=== PATIENT | female | born 2000 | race Caucasian/White ===

== ENCOUNTER → 2018-08-25 13:17 | Outpatient (CLI) | payer SELFPAY ==
[2018-08-25 14:36] LABS: APPEARANCE CLEAR (CLEAR); BACTERIA FEW /hpf (NONE SEEN); BILIRUBIN NEGATIVE (NEGATIVE); COLOR YELLOW (YELLOW); EPITHELIAL CELLS 0-5 /hpf (0-5); GLUCOSE 100 mg/dL (NEGATIVE); KETONE SMALL mg/dL (NEGATIVE); NITRITE NEGATIVE (NEGATIVE); PROTEIN 1+ mg/dL (NEGATIVE); RED CELLS - URINE 0-5 /hpf (0-5); SPECIFIC GRAVITY 1.015 (1.005-1.020); UROBILINOGEN NORMAL (NORMAL); WHITE CELLS - URINE 0-5 /hpf (0-5)
== END | disposition home or self-care (01) ==
LOC: D.LDO 13:17
PROVIDERS: Obstetrics & Gynecology
DX: O26.893 Other specified pregnancy related conditions, third trimester (principal); Z3A.32 32 weeks gestation of pregnancy

== ENCOUNTER 2018-08-30 14:04 | Outpatient (CLI) | payer SELFPAY ==
[2018-08-30 16:26] LABS: APPEARANCE CLEAR (CLEAR); BILIRUBIN NEGATIVE (NEGATIVE); COLOR YELLOW (YELLOW); GLUCOSE 100 mg/dL (NEGATIVE); KETONE NEGATIVE (NEGATIVE); NITRITE NEGATIVE (NEGATIVE); PROTEIN NEGATIVE (NEGATIVE); UROBILINOGEN NORMAL (NORMAL)
[2018-08-30 16:27] LABS: EPITHELIAL CELLS 0-5 /hpf (0-5); RED CELLS - URINE 0-5 /hpf (0-5); WHITE CELLS - URINE 0-5 /hpf (0-5)
[2018-08-30 16:58] LABS: BASOPHILS 0.1 % (0-2); EOSINOPHILS 0.2 % (0-7); HEMATOCRIT 32.1 % (36.0-48.0); HEMOGLOBIN 11.4 g/dL (12-16); IMMATURE GRANULOCYTES 0.6 % (0-5); LYMPHOCYTES 8.7 % (15-50); MCH 30.8 pg (26.0-34.0); MCHC 35.5 g/dL (31.0-37.0); MCV 86.8 fL (80.0-100.0); MEAN PLATELET VOLUME 10.6 fL (7.4-10.4); MONOCYTES 8.2 % (2-11); NEUTROPHILS 82.2 % (40-80); PLATELET COUNT 150 10x3/uL (130-400); RDW 13.4 % (11.5-14.5); WBC 16.4 10x3/uL (4.8-10.8)
[2018-08-30] MEDS ORDERED: PRENAVITE1 TAB PO (19:35)
[2018-08-30] MEDS ORDERED: ACETAMINOPHEN500 M1 PO (19:35)
[2018-08-31 06:15] LABS: BASOPHILS 0.1 % (0-2); EOSINOPHILS 0.3 % (0-7); HEMATOCRIT 33.2 % (36.0-48.0); HEMOGLOBIN 11.7 g/dL (12-16); IMMATURE GRANULOCYTES 0.8 % (0-5); MCHC 35.2 g/dL (31.0-37.0); MCV 87.8 fL (80.0-100.0); MEAN PLATELET VOLUME 10.9 fL (7.4-10.4); MONOCYTES 7.6 % (2-11); NEUTROPHILS 80.2 % (40-80); PLATELET COUNT 164 10x3/uL (130-400); RBC 3.78 10x6/uL (4.00-5.40); RDW 13.7 % (11.5-14.5); WBC 16.3 10x3/uL (4.8-10.8)
[2018-08-31 14:45] LABS: BASOPHILS 0.1 % (0-2); EOSINOPHILS 0.1 % (0-7); HEMATOCRIT 32.1 % (36.0-48.0); HEMOGLOBIN 11.2 g/dL (12-16); IMMATURE GRANULOCYTES 0.9 % (0-5); LYMPHOCYTES 8.6 % (15-50); MCH 30.7 pg (26.0-34.0); MCHC 34.9 g/dL (31.0-37.0); MCV 87.9 fL (80.0-100.0); MEAN PLATELET VOLUME 10.2 fL (7.4-10.4); MONOCYTES 6.6 % (2-11); NEUTROPHILS 83.7 % (40-80); PLATELET COUNT 156 10x3/uL (130-400); RBC 3.65 10x6/uL (4.00-5.40); RDW 13.6 % (11.5-14.5); WBC 13.8 10x3/uL (4.8-10.8)
== END 2018-08-31 18:10 ==
LOC: D.LDO 14:04 → D.LD 20:46 → D.LDO 08-31 18:10
PROVIDERS: Obstetrics & Gynecology
DX: O26.893 Other specified pregnancy related conditions, third trimester (principal); Z3A.34 34 weeks gestation of pregnancy

== ENCOUNTER 2018-10-15 06:09 | Inpatient (IN) | payer SELFPAY ==
[~2018-10-15] VITALS: Ht 154.9 cm; Wt 92.1 kg
[~2018-10-15 06:09] MED LIST: ACETAMINOPHEN500 M1 PO; PRENAVITE1 TAB PO
[2018-10-15 06:31] VITALS: BP 134/87; Ht 154.9 cm; Wt 92.1 kg
[2018-10-15 07:49] LABS: APPEARANCE HAZY (CLEAR); BILIRUBIN NEGATIVE (NEGATIVE); COLOR YELLOW (YELLOW); GLUCOSE NEGATIVE (NEGATIVE); KETONE NEGATIVE (NEGATIVE); NITRITE NEGATIVE (NEGATIVE); PROTEIN TRACE mg/dL (NEGATIVE); SPECIFIC GRAVITY 1.015 (1.005-1.020); UROBILINOGEN NORMAL (NORMAL)
[2018-10-15 07:55] LABS: HEMATOCRIT 34.5 % (36.0-48.0); HEMOGLOBIN 11.9 g/dL (12-16); MCH 29.7 pg (26.0-34.0); MCHC 34.5 g/dL (31.0-37.0); RBC 4.01 10x6/uL (4.00-5.40); RDW 13.9 % (11.5-14.5); WBC 11.8 10x3/uL (4.8-10.8)
[2018-10-15 08:05] LABS: WHITE CELLS - URINE 0-5 /hpf (0-5)
[2018-10-15 08:06] LABS: BACTERIA MODERATE /hpf (NONE SEEN); EPITHELIAL CELLS 0-5 /hpf (0-5); RED CELLS - URINE RARE /hpf (0-5)
[2018-10-15 17:36] LABS: CALC OSMOLALITY 275 mosm/kg (275-300); CALCIUM 8.4 mg/dL (8.5-10.1); CARBON DIOXIDE 23.2 mmol/L (21.0-32.0); CHLORIDE - SERUM 106 mmol/L (98-107); CREATININE - SERUM 0.6 mg/dL (0.6-1.3); GLUCOSE 79 mg/dL (74-106); POTASSIUM - SERUM 3.4 mmol/L (3.5-5.1); SODIUM 140 mmol/L (136-145); UREA NITROGEN 8 mg/dL (7-18); eGFR NON AFRICAN AMERICAN > 90 mL/min (90-120)
[2018-10-15 17:40] LABS: APPEARANCE CLEAR (CLEAR); BILIRUBIN NEGATIVE (NEGATIVE); COLOR YELLOW (YELLOW); EPITHELIAL CELLS 0-5 /hpf (0-5); GLUCOSE NEGATIVE (NEGATIVE); KETONE MODERATE mg/dL (NEGATIVE); NITRITE NEGATIVE (NEGATIVE); PROTEIN 1+ mg/dL (NEGATIVE); SPECIFIC GRAVITY 1.005 (1.005-1.020); UROBILINOGEN NORMAL (NORMAL); WHITE CELLS - URINE 0-5 /hpf (0-5)
[2018-10-15 18:15] LABS: ALBUMIN 2.5 g/dL (3.4-5.0); BILIRUBIN - DIRECT 0.12 mg/dL (0.00-0.30); BILIRUBIN - INDIRECT 0.32 mg/dL (0.00-1.00); BILIRUBIN - TOTAL 0.44 mg/dL (0.2-1.3); PROTEIN - SERUM 5.9 g/dL (6.4-8.2); URIC ACID 4.8 mg/dL (2.6-7.2)
--- NOTE | 2018-10-15 22:39 | NUR ---
[age] BABY BOY BORN IN NO APPARENT DISTRESS
--- NOTE | 2018-10-15 23:30 | NUR ---
TO 1273 VIA CART FROM RECOVERY. SKIN WARM AND DRY. DROWSY AT INTERVALS. RATES PAIN RATED A 1 OF 10 ON PAIN SCALE. PT. RELATES "I FEEL SO MUCH BETTER THAN WHEN IN LABOR." 400CC EMPTIED FROM REYES BAG. ABD. DRESSING DRY AND INTACT. LOCHIA RUBRA MOD ON PRESENT PAD. UNDERPAD AND PHILL PADS CHANGED. SCDS CONNECTED TO PUMP AND FUNCTIONAL. ICE CAP TO ABD. BREATH SOUNDS CLEAR.
[2018-10-15 23:34] VITALS: BP 141/78
--- NOTE | 2018-10-15 23:44 | NUR ---
DILAUDID WASTE WATER WORKER CONNECTED TO PT. PT. INFORMED OF USE OF WASTE WATER WORKER. RATES PAIN A 1 OF 10 ON PAIN SCALE.
--- NOTE | 2018-10-15 23:54 | NUR ---
FAMILY AT BEDSIDE. ORANGE DRINK GIVEN TO PT. PER SPOUSE.
[2018-10-15 23:57] VITALS: BP 141/77
[2018-10-16] VITALS (14 sets, daily range): BP systolic 123–138; BP diastolic 70–84
--- NOTE | 2018-10-16 00:24 | NUR ---
SITTING UP IN BED WITH HOB AT 30 DEGREES. VISITORS IN ROOM HOLDING . SCDS ON AND FUNCTIONAL. REYES PATENT AND DRAINING. SIDE RAILS UP X 2 AND CALL LIGHT WITHIN REACH.
--- NOTE | 2018-10-16 00:24 | NUR ---
IV OF 1000CC NS WITH 20U PITOCIN ADDED INFUSING IN RT. HAND AT 125CC/HR. VIA PUMP. NO REDNESS NOR EDEMA NOTED AT IV SITE.
--- NOTE | 2018-10-16 01:14 | NUR ---
PT. SITTING UP IN BED EATING JELLO. HOB AT 30 DEGREES. IN OPEN CRIB AT BEDSIDE. REYES PATENT AND DRAINING. PHILL PADS AND BLUE CHUX CHANGED. NIRAJ JAVIER MOD. ICE CAP APPLIED TO ABD DRESSING. POSITIONED FROM BACK TO RT SIDE. DROWSY AT PRESENT. SCDS ON AND FUNCTIONAL.
--- NOTE | 2018-10-16 01:15 | NUR ---
FUNDUS U/U AND MIDLINE. PT. VOICES DISCOMFORT WITH FUNDAL CHECK.
--- NOTE | 2018-10-16 01:26 | NUR ---
TORADOL 30 MG GIVEN IVP SLOWLY OVER 2 MINUTES.
--- NOTE | 2018-10-16 02:15 | NUR ---
PHILL PAD CHANGED WITH PAD SATURATED. OBSERVATION OF STEADY SMALL STEAM OF VAG. BLEEDING NOTED. DR. LYNNE DAY.
--- NOTE | 2018-10-16 02:25 | NUR ---
DR. BATISTA REPAGED.
--- NOTE | 2018-10-16 02:30 | NUR ---
PHILL PAD CHECKED. LOCHIA FLOW NOTED EARLIER STOPPED. CURRENT SINGLE PHILL PAD NOTED NOT TO BE SATURATED. REASSURED PT. INFORMED WOULD CONTINUE TO CHECK PADS PERIODICALLY. REYES PATENT AND DRAINING. LIGHTS IN ROOM DIMMED.
--- NOTE | 2018-10-16 02:47 | NUR ---
DR. BATISTA CALLED UNIT AND INFORMED OF 2 EPISODES OF SATURATED PADS ALTHOUGH AT THIS TIME VAG. BLEEDING HAS DECREASED. INFORMED OF LAST TWO VITAL SIGNS. ORDER RECEIVED.
--- NOTE | 2018-10-16 03:00 | NUR ---
AUTOMATIC BLOCKER TO UNIT TO SECURE METHERGINE FROM [facility]XIS. PT. MANAGER E LEARNING LIGHT STATING THAT SHE FEELS MORE VAG. BLEEDING. TO PT. ROOM . ONE PAD HALF SOAKED. PAD CHANGED. UNDERPAD NOT INVOLVED THIS TIME.
--- NOTE | 2018-10-16 03:03 | NUR ---
METHERGINE ADMINISTERED ORDERED. REASON FOR MEDICATION EXPLAINED TO PT. ABD. DRESSING DRY AND INTACT. REYES PATIENT AND DRAINING. 350 CC OUTPUT NOTED SINCE RECEIVED TO ROOM AFTER DISCARDING OR AND RECOVERY OUTPUT. IV CONTINUES TO INFUSE AT 125CC/HR. PT. IN RT TILT AT THIS TIME. SCDS ON AND FUNCTIONAL. STATES PAIN IS 2 OF 10 ON PAIN SCALE . FOB SLEEPING ON SOFA.
--- NOTE | 2018-10-16 03:33 | NUR ---
SCDS ALARMING AND TUBING REPOSITIONED. PUMP FUNCTIONAL AGAIN.
--- NOTE | 2018-10-16 04:15 | NUR ---
PT. ASLEEP AT PRESENT. AWAKENED TO EVALUATE LOCHIA. PHILL PAD WITH ONE END SATURATED. REYSE CATH. PATENT AND DRAINING. FOB SLEEPING ON SOFA.
--- NOTE | 2018-10-16 05:00 | NUR ---
LAB TO ROOM FOR BLOOD DRAW.
--- NOTE | 2018-10-16 05:15 | NUR ---
PT. CALLED TO REPORT THAT SHE FEELS SHE IS BLEEDING HEAVILY AGAIN. INTO ROOM TO EVALUATE PT. . PHILL PAD 1/2 SATURATED. VAG. EXAM TO CHECK FOR CLOTS. CERVIX NOTED OPEN 4-5 CM. MOD AMT. OF SMALL CLOTS EXPRESSED. FUNDUS FIRM U/U AND MIDLINE. PHILL CARE GIVEN AND UNDERPAD CHANGED AND PHILL PADS X2 APPLIED. PT. USED CONTENT CREATION MANAGER WITH ENCOURAGEMENT DURING VAG. EXAM. IV CONTINUES TO INFUSE AT 125CC/HR. REYES PATENT AND DRAINING. SCDS ON AND FUNCTIONAL.
[2018-10-16 05:49] LABS: HEMOGLOBIN 11.2 g/dL (12-16); MCH 29.5 pg (26.0-34.0); MCHC 33.9 g/dL (31.0-37.0); MCV 86.8 fL (80.0-100.0); MEAN PLATELET VOLUME 12.7 fL (7.4-10.4); PLATELET COUNT 119 10x3/uL (130-400); RDW 13.8 % (11.5-14.5); WBC 21.2 10x3/uL (4.8-10.8)
--- NOTE | 2018-10-16 06:29 | NUR ---
PRESENT IV OF NS WITH PITOCIN COMPLETED AND NEXT LITER UP AT 125CC/HR. PT. AND FOB BOTH ASLEEP AT THIS TIME. PT. AWAKENS ONLY BRIEFLY.
--- NOTE | 2018-10-16 06:30 | NUR ---
PT. AWAKENED TO THIS NURSE IN ROOM. 250CC OUTPUT SINCE LAST RECORDED. PREVENTIVE MEDICINE OFFICER WITH 27.6CC REMAINING. LOCHIA SCANT AT THIS TIME. VITAL SIGNS OBTAINED. ABD. DRESSING DRY AND INTACT. SCDS ON AND FUNCTIONAL.
[2018-10-16 06:58] LABS: LYMPHOCYTES 4 % (15-50); MONOCYTES 2 % (2-11); NEUTROPHILS 87 % (40-80); PLATELET ESTIMATE NORMAL; PLATELET MORPHOLOGY GIANT PLTS PRESENT
--- NOTE | 2018-10-16 07:15 | NUR ---
ASSUMED CARE OF THIS PATIENT S/P C/S LAST NIGHT AT 2219. AWAKE, LAYING IN LOW FOWLERS POSITION. ALERT AND ORIENTED. SHIFT ASSESSMENT COMPLETED. SCANT DRY BLOOD NOTED ON PERIPAD. REYES DRAINING CLEAR YELLOW URINE. IV PATENT. USING OYSTER PLANTER PRN, 3/[address] AND PUMP IS ON. FRESH ICE PACK GIVEN. INSTRUCTED ON USE OF INCENTIVE SPIROMETER WHICH WAS USED AT THIS TIME. FRESH WATER GIVEN, ANTICIPATING CLEAR LIQUID DIET DELIVERY SOON. FOB IN ROOM, IN NURSERY. PLANS TO BOTTLE FEED INFANT. RH NEG, RUBELLA IMMUNE, GBS NEG, SAYS SHE RECEIVED FLU VACCINATION DURING . NON-SMOKER. SIDE RAILS UP X 2, CALL LIGHT IN REACH. DISCUSSED ANTICIPATED PLAN OF CARE FOR TODAY. VERBALIZED UNDERSTANDING. TO CALL IF ANYTHING IS NEEDED.
--- NOTE | 2018-10-16 07:56 | NUR ---
DR BATISTA HERE TO SEE PATIENT. REVIEWED CBC RESULTS.
--- NOTE | 2018-10-16 08:50 | NUR ---
REYES DC'D WITHOUT DIFFICULTY. IV FLUIDS AND COLOR CONTROL SUPERVISOR DC'D. SALINE LOCK FLUSHED. DISCUSSED POC WITH PATIENT. 5-6/10 CRAMPING. ATE CLEAR LIQUID DIET, NOT HUNGRY FOR REGULAR DIET. FOB AND INFANT IN ROOM. BED PLACED IN LOW POSITION, CALL LIGHT IN REACH.
--- NOTE | 2018-10-16 09:05 | NUR ---
NORCO 10 MG GIVEN PO FOR RELIEF OF CRAMPING. INCENTIVE SPIROMETER USED.
--- NOTE | 2018-10-16 10:02 | NUR ---
PAIN HAS IMPROVED TO 2/10. C/O FEELING NAUSEA DOES NOT DESIRE ANYTHING AT THIS TIME. RN WILL CALL MD IF SHE NEEDS ANYTHING IF THIS DOES NOT PASS. EXPLAINED TO PATIENT THIS COULD BE RELATED TO THE NORCO. VERBALIZED UNDERSTANDING. WILL GIVE SUSHMA CRACKERS TO EAT AT THIS TIME. SIDE RAILS UP X 2, CALL LIGHT IN REACH.
--- NOTE | 2018-10-16 10:20 | NUR ---
WASTED 25 ML DILAUDID. MIS CALCULATED AT 0.3MG X 25 INSTEAD OF .4 MG X 25 IN PIXIS. 10 MG WASTED, 2 MG RECEIVED BY PATIENT. NOTIFIED PHARMACY. UNABLE TO CORRECT.
--- NOTE | 2018-10-16 11:08 | NUR ---
SITTING UP IN BED. SAYS NAUSEA HAS RESOLVED. TEARFUL, UNSURE WHY. EXPLAINED THAT SOMETIME FROM HORMONE CHANGES . DENIES NEEDING ANYTHING. LIKES THE [employer]ICKEN BROTH, ATE SOME CRACKERS. PLANS AMBULATE AND SHOWER AFTER LUNCH. U/1 FIRM, RUBRA SMALL, CLEAN PAD ON. VS OBTAINED. METHERGINE WAS GIVEN. FOB AT BEDSIDE. SIDERAILS UP X 2, CALL LIGHT IN REACH. INFANT BLOOD TYPE A NEGATIVE. PT WILL NOT NEED RHOGAM.
--- NOTE | 2018-10-16 12:03 | NUR ---
C/O HEADACHE AND NAUSEA HAS RETURNED. SAYS PAGE IS AT [place] ARE[facility] "ACHING". 02/27 PAIN TO INCLUDE INTERMITTENT ABDOMINAL CRAMPING. RECEIVED METHERGINE AN HOUR AGO. CURRENT BP 134/84. U/1 FIRMYAYA. ENCOURAGED TO EAT CRACKERS, OFFERED MOTRING.
--- NOTE | 2018-10-16 12:11 | NUR ---
MOTRIN 600 MG GIVEN WITH SALTINE CRACKERS, WAITING ON LUNCH TO BE DELIVERED. DENIES NEEDING ANYTHING ELSE AT THIS TIME. SIDE RAILS UP X 2, CALL LIGHT IN REACH. INFANT IN CRIB AT BEDSIDE.
--- NOTE | 2018-10-16 12:44 | NUR ---
SITTING UP IN BED, SAYS HER NAUSEA IS GONE AND HER HEADACHE IS BETTER. VISITING WITH VISITORS AND EATING LUNCH. TO CALL IF ANYTHING IS NEEDED.
--- NOTE | 2018-10-16 13:53 | NUR ---
UP TO VOID, VOIDED 400 ML URINE WITH LOCHIA. MOD LOCHIA NOTED ON PHILL-PAD. TO SHOWER AFTER VOIDING. NO ACTIVE BLEEDING. INSTRUCTED ON CARE OF INCISION WHILE IN SHOWER. COMPLETE LINEN CHANGE WAS DONE. AMBULATED IN MIRELES AFTER SHOWER. TOLERATED WELL. CURRENTLY AMBULATING IN ROOM. FOB AND VISITORS IN ROOM. IN CRIB. TO CALL IF ANYTHING IS NEEDED. SAYS HER PAIN IS MUCH BETTER NOW. NOW NAUSEA.
[2018-10-16 15:02] LABS: BASOPHILS 0.1 % (0-2); EOSINOPHILS 0 % (0-7); HEMOGLOBIN 11.8 g/dL (12-16); IMMATURE GRANULOCYTES 0.5 % (0-5); LYMPHOCYTES 7.2 % (15-50); MCH 29.7 pg (26.0-34.0); MCHC 34.7 g/dL (31.0-37.0); MCV 85.6 fL (80.0-100.0); MEAN PLATELET VOLUME 12.4 fL (7.4-10.4); MONOCYTES 6.4 % (2-11); NEUTROPHILS 85.8 % (40-80); PLATELET COUNT 106 10x3/uL (130-400); RBC 3.97 10x6/uL (4.00-5.40); RDW 13.7 % (11.5-14.5); WBC 18.8 10x3/uL (4.8-10.8)
--- NOTE | 2018-10-16 15:05 | NUR ---
SITTING UP ON BED TALKING TO VISITORS. SAYS SHE IS DOING OK WITHOUT ANY PROBLEMS. NO NEEDS FOR PAIN MEDICATION AT THIS TIME. HAD BLOOD DRAWN. TO CALL IF ANYTHING IS NEEDED.
--- NOTE | 2018-10-16 15:08 | NUR ---
CBC RESULTS CALLED TO DR BATISTA. NO NEW ORDERS.
--- NOTE | 2018-10-16 16:44 | NUR ---
AMBULATING IN ROOM. REQUESTED PAIN MEDICATION FOR 6-7/10 PAIN IN INCISION AND CRAMPING. NORCO 10 MG GIVEN PO FOR RELIEF. ENCOURAGED TO REST SINCE SHE HAS BEEN OUT OF BED SINCE SHOWER. INSTRUCTED ON USE OF PERIPAD OVER INCISION. NO ADDITIONAL REQUESTS. INFANT AND VISITORS IN ROOM. REGULAR DIET WAS SERVED, ENCOURAGED TO EAT SOMETHING. ATE 90% OF LUNCH.
--- NOTE | 2018-10-16 17:02 | NUR ---
VOIDED 300 ML BLOOD TINGE URINE, LOCHIA RUBRA SMALL, CLEAN PERIPADS AND UNDERWEAR ON.
--- NOTE | 2018-10-16 17:35 | NUR ---
SITTING UP IN BED FILLING OUT PAPERWORK. DENIES NEEDING ANYTHING. DENIES HEADACHE OR NAUSEA. PAIN HAS DECREASED TO 2/10. INFANT AND VISITORS IN ROOM. ATE REGULAR DIET. SIDE RAILS UP X 2, CALL LIGHT IN REACH.
--- NOTE | 2018-10-16 18:31 | NUR ---
SITTING UP IN BED. TEARFUL "BECAUSE THE BABY WAS CRYING". DISCUSSED HORMONE CHANGES. DISCUSSED DEPRESSION AND IMPORTANCE OF LETTING PHYSICIAN KNOW IF SHE IS FEELING DEPRESSED. VERBALIZED UNDERSTANDING. SMILING. FAMILY IN ROOM. IN ROOM. GETTING READY TO BOTTLE FEED . SIDE RAILS UP X 2.
--- NOTE | 2018-10-16 18:50 | NUR ---
REPORT GIVEN TO PM SHIFT.
--- NOTE | 2018-10-16 19:53 | NUR ---
RN TO PT BS FOR ROMMEL. PT RESTING IN BED IN HIGH FOWLERS POSITION IN NO ACUTE DISTRESS. PT IS A 19YO G1 NOW P1 WITH PRIMARY C/S, OF VIABLE MALE INFANT YESTERDAY @ 2219. @ 40WKS GESTATION. AAOX3. HR REGULAR. LUNGS CTAB. ABDOMEN SOFT AND TENDER WITH PALPATION. BS HYPOACTIVE TIMES 4. LOWER ABDOMINAL INCISION NOTED. ELIJAH IN PLACE. NO REDNESS, EDEMA, OR DRAINAGE NOTED TO SITE. SITE WELL PROXIMATED. FUNDUS NOT PALPATED. PHILL PAD AND PANTIES IN PLACE. LOCHIA RUBRA SCANT. PT DENIES DIFFICULTY VOIDING. PT STATES SHE HAS NOT PASSED GAS SINCE C/S. PT STATES SHE HAS NOT HAD A BM SINCE C/S. 2+ EDEMA NOTED TO LOWER EXTREMITIES BILATERALLY. 1+ EDEMA NOTED TO UPPER EXTREMITIES BILATERALLY. 18G IV IN PLACE TO RIGHT WRIST. FLUSHED AT THIS TIME WITH 5 CC NS WITHOUT DIFFICULTY. NO REDNESS OR EDEMA NOTED TO SITE. PT RATES PAIN 3/10. POC DISCUSSED WITH PT AND SO. QUESTIONS ANSWERED. PT VERBALIZES UNDERSTANDING. BED IN LOW POSITION, SIDE RAILS UP TIMES 2, CALL LIGHT AND PHONE IN REACH. SO REMAINS AT PT BS FOR SUPPORT AND ASSISTANCE. INFANT REMAINS AT PT BS FOR COUPLET CARE. WILL CONT TO MONITOR PT STATUS.
--- NOTE | 2018-10-16 20:42 | NUR ---
PT CALLS, C/O PAIN, RATES 03/29, REQUESTS MEDICATION. 1 TAB IBUPROFEN AND 1 TAB NORCO 10 PROVIDED TO PT AT THIS TIME. PT DENIES ANY FURTHER NEEDS. BED IN LOW POSITION, SIDE RAILS UP TIMES 2, CALL LIGHT AND PHONE IN REACH. INFANT REMAINS AT PT BS FOR COUPLET CARE. SO REMAINS AT PT BS FOR SUPPORT AND ASSISTANCE. WILL CONT TO MONITOR PT STATUS.
--- NOTE | 2018-10-16 21:20 | NUR ---
RN TO PT BS. DISCUSSED WITH PT, AM LAB WNL. 18G SL TO RIGHT HAND D/C'D AT THIS TIME, TIP INTACT. PRESSURE DRESSING PLACED TO SITE. PT STATES SHE WOULD LIKE FOR INFANT TO BE TRANSPORTED TO NURSERY FOR NIGHT TO ALLOW PT TO REST. TAKEN TO LABOR AND DELIVERY DESK, NURSERY RN REMAINS IN OR WITH CASE. WILL BOTTLEFEED PRIOR TO TRANSPORTING TO NURSERY. PT DENIES ANY FURTHER NEEDS. BED IN LOW POSITION, SIDE RAILS UP TIMES 2, CALL LIGHT AND PHONE IN REACH. SO REMAINS AT PT BS FOR SUPPORT AND ASSISTANCE. WILL CONT TO MONITOR PT STATUS.
--- NOTE | 2018-10-16 21:30 | NUR ---
SO COMES TO LABOR AND DELIVERY DESK, STATES PT IS REQUIRING ASSISTANCE. RN BOTTLEFEEDING INFANT. Ephraim LESTER RN GOES TO ROOM TO ASSIST PT. REPORT FROM Ephraim LESTER RN, PT IS UNABLE TO GET OUT OF BED. RN ASSISTED PT OUT OF BED AND TO BR BUT STATES SHE IS TEARFUL. WILL CHECK ON PT WHEN BOTTLEFEED OF COMPLETE.
--- NOTE | 2018-10-16 21:40 | NUR ---
BOTTLEFEED OF INFANT COMPLETE. TRANSPORTED TO NURSERY VIA OPEN CRIB, REPORT GIVEN TO NURSERY RN. RN TO PT BS. PT REMAINS IN BR, TEARFUL. PT DISCRIBED PAIN, APPEARS TO BE GAS PAIN. DISCUSSED WITH PT THE MECHANISM OF GAS AND HOW IT CAN BE EXTREMELY PAINFUL. INFORMED PT SHE HAS NOT PASSED GAS SINCE C/S. DISCUSSED WITH PT THE IMPORTANCE OF PASSING GAS AFTER ABDOMINAL SURGERY. PT VERBALIZED UNDERSTANDING. PT ENCOURAGED TO WALK PRIOR TO LAYING BACK DOWN. PT ENCOURAGED TO ASK FOR PAIN MEDICATION PRIOR TO THE PAIN BECOMING HORRIBLE. PT VERBALIZED UNDERSTANDING. PT DENIES ANY NEEDS AT THIS TIME. SO REMAINS AT PT BS FOR SUPPORT AND ASSISTANCE. WILL CONT TO MONITOR PT STATUS.
--- NOTE | 2018-10-16 21:55 | NUR ---
PT ABULATING IN MIRELES WITH SO. PT NO LONGER TEARFUL. PT AMBULATING WITHOUT ASSISTANCE AND TOLERATING WELL. PT DENIES ANY NEEDS. SO REMAINS WITH PT FOR SUPPORT AND ASSISTANCE. WILL CONT TO MONITOR PT STATUS.
[2018-10-17 00:39] VITALS: BP 121/78
--- NOTE | 2018-10-17 00:39 | NUR ---
RN TO PT BS. PT RESTING IN BED IN SEMI-FOWLERS POSITION, WITH EYES CLOSED, IN NO ACUTE DISTRESS. PT AWAKENS EASILY WHEN SPOKEN TO. VS TAKEN AND WNL. PT C/O PAIN, RATES 6/10, REQUESTS MEDICATION. 1 TAB NORCO 10 PROVIDED TO PT AT THIS TIME. PT DENIES ANY FURTHER NEEDS. BED IN LOW POSITION, SIDE RAILS UP TIMES 2, CALL LIGHT AND PHONE IN REACH. SO REMAINS AT PT BS FOR SUPPORT AND ASSISTANCE. WILL CONT TO MONITOR PT STATUS.
--- NOTE | 2018-10-17 02:15 | NUR ---
RN TO PT BS FOR ROUNDS. PT RESTING IN BED, IN SEMI-FOWLERS POSITION, WITH EYES CLOSED, IN NO ACUTE DISTRESS. RESPIRATIONS EVEN AND UNLABORED. BED IN LOW POSITION, SIDE RAILS UP TIMES 2, CALL LIGHT AND PHONE IN REACH. SO REMAINS AT PT BS FOR SUPPORT AND ASSISTANCE. WILL CONT TO MONITOR PT STATUS.
[2018-10-17 04:32] VITALS: BP 124/77
--- NOTE | 2018-10-17 04:32 | NUR ---
RN TO PT BS. PT RESTING IN BED IN SEMI-FOWLERS POSITION, WITH EYES CLOSED, IN NO ACUTE DISTRESS. RESPIRATIONS EVEN AND UNLABORED. PT AWAKENS EASILY WHEN SPOKEN TO. VS TAKEN, WNL. PT C/O PAIN, RATES 6/10, REQUESTS MEDICATION. 1 TAB NORCO 10 AND 1 TAB IBUPROFEN PROVIDED TO PT AT THIS TIME. PT DENIES ANY FURTHER NEEDS. BED IN LOW POSITION, SIDE RAILS UP TIMES 2, CALL LIGHT AND PHONE IN REACH. SO REMAINS AT PT BS FOR SUPPORT AND ASSISTANCE. WILL CONT TO MONITOR PT STATUS.
--- NOTE | 2018-10-17 06:17 | NUR ---
RN TO PT BS FOR ROUNDS. PT RESTING IN BED IN HIGH FOWLERS POSITION, TEXTING ON PHONE, PT IN NO ACUTE DISTRESS. PT DENIES ANY NEEDS AT THIS TIME. BED IN LOW POSITION, SIDE RAILS UP TIMES 2, CALL LIGHT AND PHONE IN REACH. SO REMAINS AT PT BS FOR SUPPORT AND ASSISTANCE. WILL CONT TO MONITOR PT STATUS.
--- NOTE | 2018-10-17 06:51 | NUR ---
DR. BATISTA AT PT BS FOR ASSESSMENT.
[2018-10-17 07:54] VITALS: BP 129/69
--- NOTE | 2018-10-17 07:54 | NUR ---
RECEIVED PT LYING SUPINE IN BED. WAKES UPON ENTERING ROOM. VSS. AAO X 3. HRRR WITHOUT AUDIBLE MURMUR. BBS CLEAR. BS X 4. ABDOMEN SOFT/SLIGHTLY DISTENDED. PT DENIES PASSING GAS. ABDOMINAL INCISION WITH ELIJAH INTACT. NO REDNESS, SWELLING OR DRAINAGE NOTED. PERIPAD TO INCISION WITHOUT DRAINAGE NOTED. FUNDUS FIRM AT U/1. RUBRA LOCHIA SCANT AMT. PT DENIES HEAVY BLEEDING OR PASSING CLOTS. NEG HOMANS' SIGN. PPP. MILD, NON-PITTING EDEMA NOTED TO FEET/ANKLES. SL SITE CLEAR. PT DENIES NEEDS OR C/O. SR UP X 2. CALL LIGHT IN REACH.
--- NOTE | 2018-10-17 08:49 | NUR ---
PT CALLS ON LIGHT. C/O INCISIONAL PAIN OF "4" ON 0-10 PAIN SCALE. NORCO 10/325 GIVEN PO ORDERED. PT INSTRUCTED ON MED. VERBALIZES UNDERSTANDING.
[2018-10-17] MEDS ORDERED: MOTRIN600 MG PO (09:14)
[2018-10-17] MEDS ORDERED: NORCO 10-325 TA1 TAB PO (09:15)
--- NOTE | 2018-10-17 10:15 | NUR ---
PT AMBULATORY IN HALLS.
--- NOTE | 2018-10-17 11:20 | NUR ---
PT SITTING UP IN BED. VISITING WITH FAMILY. DENIES C/O OR NEEDS.
--- NOTE | 2018-10-17 11:49 | NUR ---
PT CALLS SALES AUDIT CLERK LIGHT. REQUESTS AND RECEIVES BOTH NORCO 10/325 AND MOTRIN 600 MG PO. PT INSTRUCTED ON MEDS. VERBALIZES UNDERSTANDING.
--- NOTE | 2018-10-17 13:50 | NUR ---
PT SITTING UP IN BED. CONSUMING REG DIET. PAWAN WELL. DENIES C/O OR NEEDS.
--- NOTE | 2018-10-17 15:25 | NUR ---
MMR 0.5 ML GIVEN IM TO RIGHT OUTER ARM. BANDAID TO SITE. PT PAWAN WELL. PT ALSO GIVEN ZOFRAN 4 MG PO FOR C/O NAUSEA. NO EMESIS NOTED. PT GIVEN DISCHARGE INSTRUCTIONS. COPIES GIVEN TO PT. RX FOR NORCO AND MOTRIN GIVEN TO PT. PT PREPARES FOR DISCHARGE.
--- NOTE | 2018-10-17 15:45 | NUR ---
PT READY FOR DISCHARGE. DISCHARGED IN STABLE CONDITION WITH VIA WHEELCHAIR PER AUXILIARY STAFF TO PRIVATE VEHICLE.
[2018-10-18 03:09] LABS: RAPID PLASMA REAGIN Non Reactive (Non Reactive)
== END 2018-10-17 15:45 | disposition home or self-care (01) | DRG 788 ==
LOC: D.LD 06:09
PROVIDERS: ADMIT Obstetrics & Gynecology
PROC: 10907ZC Drainage of Amniotic Fluid, Therapeutic from Products of Conception, Via Natural or Artificial Opening (ICD-10-PCS; 2018-10-15)
PROC: 10D00Z1 Extraction of Products of Conception, Low, Open Approach (ICD-10-PCS; principal; 2018-10-15 21:36)
DX: O32.8XX0 Maternal care for other malpresentation of fetus, not applicable or unspecified (principal); Z3A.40 40 weeks gestation of pregnancy; Z37.0 Single live birth; O26.893 Other specified pregnancy related conditions, third trimester; Z67.91 Unspecified blood type, Rh negative; D17.79 Benign lipomatous neoplasm of other sites; O75.89 Other specified complications of labor and delivery